=== PATIENT | male | born 1960 | race Caucasian/White ===

== ENCOUNTER → 2016-11-28 | Outpatient (CLI) | payer OTHER ==
[2016-11-28 08:03] LABS: MEAN CORPUSCULAR HEMOGLOBIN 32.1 pg (27.0-33.0); MEAN CORPUSCULAR HGB CONC 34.2 g/dl (32.0-36.5); MEAN CORPUSCULAR VOLUME 93.6 fl (80.0-96.0); RED CELL DISTRIBUTION WIDTH 12.4 % (11.5-14.5)
[2016-11-28 08:51] LABS: BASOPHILS 2 % (0-4); EOSINOPHILS 7 % (0-5)
== END ==
LOC: M LAB 06:53
PROVIDERS: ATTEND Family Medicine
DX: D72.819 Decreased white blood cell count, unspecified (principal)

== ENCOUNTER → 2017-11-16 | Outpatient (CLI) | payer OTHER ==
[2017-11-16 09:36] LABS: BASO % 0.6 % (0.0-1.0); EOS # 0.1 10^3/uL (0.0-0.50); EOS % 4.2 % (0.0-3.0); HEMOGLOBIN 14.8 g/dl (13.5-17.5); IMMATURE GRANULOCYTE % 0.3 % (0-3.0); LYMPH # 1.5 10^3/uL (1.5-4.5); LYMPH % 44.8 % (24.0-44.0); MEAN CORPUSCULAR HEMOGLOBIN 31.7 pg (27.0-33.0); MEAN CORPUSCULAR HGB CONC 34.4 g/dl (32.0-36.5); MEAN CORPUSCULAR VOLUME 92.1 fl (80.0-96.0); MONO # 0.3 10^3/uL (0.0-0.8); MONO % 9.6 % (0.0-5.0); NEUTROPHILS # 1.4 10^3/uL (1.8-7.7); NEUTROPHILS % 40.5 % (36.0-66.0); PLATELET COUNT, AUTOMATED 236 10^3/uL (150-450); RED BLOOD COUNT 4.67 10^6/uL (4.30-6.10); RED CELL DISTRIBUTION WIDTH 12.1 % (11.5-14.5); WHITE BLOOD COUNT 3.4 10^3/uL (4.0-10.0)
[2017-11-16 09:54] LABS: ESTIMATED AVERAGE GLUCOSE 120 MG/DL (60-110); HEMOGLOBIN A1c 5.8 %
[2017-11-16 10:02] LABS: ALBUMIN 3.8 GM/DL (3.2-5.2); ALBUMIN/GLOBULIN RATIO 1.31 (1.00-1.93); ALKALINE PHOSPHATASE 50 U/L (45-117); ALT/SGPT 34 U/L (12-78); ANION GAP 5 MEQ/L (8-16); AST/SGOT 28 U/L (7-37); BILIRUBIN,TOTAL 0.6 MG/DL (0.2-1.0); BLOOD UREA NITROGEN 14 MG/DL (7-18); CALCIUM LEVEL 8.6 MG/DL (8.5-10.1); CARBON DIOXIDE LEVEL 29 MEQ/L (21-32); CHLORIDE LEVEL 110 MEQ/L (98-107); CREATININE FOR GFR 1.05 MG/DL (0.70-1.30); GLOMERULAR FILTRATION RATE > 60.0 (>56); GLUCOSE, FASTING 91 MG/DL (70-100); POTASSIUM SERUM 4.3 MEQ/L (3.5-5.1); PSA SCREENING 0.53 NG/ML (< 4.0); SODIUM LEVEL 144 MEQ/L (136-145); TOTAL PROTEIN 6.7 GM/DL (6.4-8.2)
[2017-11-16 12:21] LABS: TOTAL 25(OH) VITAMIN D 41.1 NG/ML (30.0-100.0)
[2017-11-16 12:22] LABS: PTH INTACT 58.4 PG/ML (18.5-88.0)
[2017-11-20 00:06] LABS: (LD) FRACTION 1 31 % (17-32); (LD) FRACTION 2 31 % (25-40); (LD) FRACTION 3 21 % (17-27); (LD) FRACTION 4 7 % (5-13); (LD) FRACTION 5 10 % (4-20); INSULIN LEVEL 3.7 uIU/mL (2.6-24.9); LDH 179 IU/L (121-224)
== END ==
LOC: M LAB 08:07
DX: R73.01 Impaired fasting glucose (principal)
CPT/HCPCS: 83525

== ENCOUNTER → 2018-05-07 | Outpatient (CLI) | payer OTHER ==
[2018-05-07 07:38] LABS: EOS # 0.2 10^3/uL (0.0-0.50); EOS % 4.3 % (0.0-3.0); HEMATOCRIT 43.2 % (42.0-52.0); HEMOGLOBIN 14.6 g/dl (13.5-17.5); IMMATURE GRANULOCYTE % 0.5 % (0-3.0); LYMPH # 1.8 10^3/uL (1.5-4.5); LYMPH % 43.6 % (24.0-44.0); MEAN CORPUSCULAR HEMOGLOBIN 31.6 pg (27.0-33.0); MEAN CORPUSCULAR HGB CONC 33.8 g/dl (32.0-36.5); MEAN CORPUSCULAR VOLUME 93.5 fl (80.0-96.0); MONO # 0.4 10^3/uL (0.0-0.8); MONO % 9.1 % (0.0-5.0); NEUTROPHILS # 1.7 10^3/uL (1.8-7.7); NEUTROPHILS % 41.5 % (36.0-66.0); PLATELET COUNT, AUTOMATED 240 10^3/uL (150-450); RED BLOOD COUNT 4.62 10^6/uL (4.30-6.10); RED CELL DISTRIBUTION WIDTH 12.2 % (11.5-14.5); WHITE BLOOD COUNT 4.2 10^3/uL (4.0-10.0)
[2018-05-07 08:13] LABS: C REACTIVE PROTEIN QUANTITATIV < 0.30 MG/DL (0.00-0.30); CHOLESTEROL LEVEL 173 MG/DL (<200); CHOLESTEROL RISK RATIO 1.821 (<5); ESTIMATED AVERAGE GLUCOSE 117 MG/DL (60-110); FREE T4 1.24 NG/DL (0.76-1.46); HDL CHOLESTEROL 95 MG/DL (>40); HEMOGLOBIN A1c 5.7 %; LDL CHOLESTEROL 69 MG/DL (<100); NON-HDL-C 78 MG/DL; TRIGLYCERIDES LEVEL 46 MG/DL (<150)
== END ==
LOC: M LAB 07:20
DX: D72.819 Decreased white blood cell count, unspecified (principal); R73.01 Impaired fasting glucose; E03.9 Hypothyroidism, unspecified
CPT/HCPCS: 84443

== ENCOUNTER → 2018-11-28 | Outpatient (CLI) | payer OTHER ==
[2018-11-28 07:22] LABS: BASO % 1.1 % (0.0-1.0); EOS # 0.1 10^3/uL (0.0-0.50); EOS % 3.7 % (0.0-3.0); HEMATOCRIT 46.3 % (42.0-52.0); HEMOGLOBIN 15.4 g/dl (13.5-17.5); LYMPH # 1.8 10^3/uL (1.5-4.5); LYMPH % 50.6 % (24.0-44.0); MEAN CORPUSCULAR HEMOGLOBIN 31.6 pg (27.0-33.0); MEAN CORPUSCULAR HGB CONC 33.3 g/dl (32.0-36.5); MEAN CORPUSCULAR VOLUME 94.9 fl (80.0-96.0); MONO # 0.3 10^3/uL (0.0-0.8); MONO % 9.1 % (0.0-5.0); NEUTROPHILS # 1.2 10^3/uL (1.8-7.7); NEUTROPHILS % 35.2 % (36.0-66.0); PLATELET COUNT, AUTOMATED 217 10^3/uL (150-450); RED BLOOD COUNT 4.88 10^6/uL (4.30-6.10); WHITE BLOOD COUNT 3.5 10^3/uL (4.0-10.0)
[2018-11-28 07:54] LABS: ALBUMIN 3.8 GM/DL (3.2-5.2); ALT/SGPT 31 U/L (12-78); BILIRUBIN,TOTAL 0.7 MG/DL (0.2-1.0); BLOOD UREA NITROGEN 17 MG/DL (7-18); CALCIUM LEVEL 9.2 MG/DL (8.5-10.1); CARBON DIOXIDE LEVEL 29 MEQ/L (21-32); CHLORIDE LEVEL 106 MEQ/L (98-107); CREATININE FOR GFR 1.07 MG/DL (0.70-1.30); GLOMERULAR FILTRATION RATE > 60.0 (>56); GLUCOSE, FASTING 94 MG/DL (70-100); POTASSIUM SERUM 4.3 MEQ/L (3.5-5.1); SODIUM LEVEL 141 MEQ/L (136-145); TOTAL PROTEIN 6.9 GM/DL (6.4-8.2)
[2018-11-28 07:55] LABS: HEMOGLOBIN A1c 5.8 %
[2018-11-28 09:33] LABS: PTH INTACT 55.7 PG/ML (18.5-88.0)
== END ==
LOC: M LAB 06:51
PROVIDERS: ATTEND Family Medicine
DX: D72.819 Decreased white blood cell count, unspecified (principal); E55.9 Vitamin D deficiency, unspecified; R73.01 Impaired fasting glucose

== ENCOUNTER → 2019-06-13 | Outpatient (CLI) | payer OTHER ==
[2019-06-13 07:14] LABS: APPEARANCE, URINE CLEAR (CLEAR); BACTERIA, URINE AUTO NEGATIVE (NEGATIVE); BILIRUBIN, URINE AUTO NEGATIVE (NEGATIVE); BLOOD, URINE BLOOD NEGATIVE (NEGATIVE); COLOR, URINE YELLOW (YELLOW); GLUCOSE, URINE (UA) AUTO NEGATIVE (NEGATIVE); KETONE, URINE AUTO NEGATIVE (NEGATIVE); LEUKOCYTE ESTERASE, URINE AUTO NEGATIVE (NEGATIVE); NITRITE, URINE AUTO NEGATIVE (NEGATIVE); PROTEIN, URINE AUTO NEGATIVE (NEGATIVE); RBC, URINE AUTO 2 /HPF (0-3); SPECIFIC GRAVITY URINE AUTO 1.015 (1.002-1.035); SQUAMOUS EPITHELIAL CELL UR AU 0 /HPF (0-6); UROBILINOGEN, URINE AUTO 0.2 mg/dL (0.0-2.0); WBC, URINE AUTO 1 /HPF (0-3)
[2019-06-13 07:29] LABS: BASO % 0.8 % (0.0-1.0); EOS # 0.2 10^3/uL (0.0-0.5); EOS % 4.2 % (0.0-3.0); HEMATOCRIT 42.5 % (42.0-52.0); HEMOGLOBIN 14.2 g/dl (13.5-17.5); LYMPH # 1.8 10^3/uL (1.5-5.0); LYMPH % 50.7 % (24.0-44.0); MEAN CORPUSCULAR HEMOGLOBIN 32.3 pg (27.0-33.0); MEAN CORPUSCULAR HGB CONC 33.4 g/dl (32.0-36.5); MEAN CORPUSCULAR VOLUME 96.6 fl (80.0-96.0); MONO # 0.4 10^3/uL (0.0-0.8); MONO % 10.3 % (0.0-5.0); NEUTROPHILS # 1.2 10^3/uL (1.5-8.5); NEUTROPHILS % 33.7 % (36.0-66.0); PLATELET COUNT, AUTOMATED 236 10^3/uL (150-450); WHITE BLOOD COUNT 3.6 10^3/uL (4.0-10.0)
[2019-06-13 07:56] LABS: FREE T4 1.32 NG/DL (0.76-1.46)
[2019-06-13 07:59] LABS: MALB URINE SIEMENS 18.8 MG/L; MAU/CREAT RATIO 12.3 MCG/MG (0.0-30.0)
[2019-06-13 09:43] LABS: HEMOGLOBIN A1c 5.8 %
[2019-06-17 00:06] LABS: INSULIN LEVEL 4.9 uIU/mL (2.6-24.9)
== END ==
LOC: M LAB 06:47
PROVIDERS: ATTEND Family Medicine
DX: R73.01 Impaired fasting glucose (principal); E03.9 Hypothyroidism, unspecified; D72.819 Decreased white blood cell count, unspecified; Z12.5 Encounter for screening for malignant neoplasm of prostate

== ENCOUNTER → 2019-12-19 | Outpatient (REF) | payer BC ==
[2019-12-19 11:29] LABS: EOS # 0.2 10^3/uL (0.0-0.5); EOS % 4.6 % (0.0-3.0); HEMATOCRIT 44.6 % (42.0-52.0); HEMOGLOBIN 14.8 g/dl (13.5-17.5); LYMPH # 2.1 10^3/uL (1.5-5.0); LYMPH % 51.7 % (24.0-44.0); MEAN CORPUSCULAR HEMOGLOBIN 31.5 pg (27.0-33.0); MEAN CORPUSCULAR HGB CONC 33.2 g/dl (32.0-36.5); MEAN CORPUSCULAR VOLUME 94.9 fl (80.0-96.0); MONO # 0.4 10^3/uL (0.0-0.8); MONO % 10.2 % (0.0-5.0); NEUTROPHILS # 1.3 10^3/uL (1.5-8.5); NEUTROPHILS % 32.3 % (36.0-66.0); PLATELET COUNT, AUTOMATED 240 10^3/uL (150-450); WHITE BLOOD COUNT 4.1 10^3/uL (4.0-10.0)
[2019-12-19 11:48] LABS: ALBUMIN 3.6 GM/DL (3.2-5.2); ALT/SGPT 41 U/L (12-78); BILIRUBIN,TOTAL 0.5 MG/DL (0.2-1.0); BLOOD UREA NITROGEN 15 MG/DL (7-18); CALCIUM LEVEL 8.9 MG/DL (8.5-10.1); CARBON DIOXIDE LEVEL 28 MEQ/L (21-32); CHLORIDE LEVEL 107 MEQ/L (98-107); CHOLESTEROL LEVEL 197 MG/DL (<200); CREATININE FOR GFR 1.06 MG/DL (0.70-1.30); GLOMERULAR FILTRATION RATE > 60.0 (>56); GLUCOSE, FASTING 98 MG/DL (70-100); HDL CHOLESTEROL 100 MG/DL (>40); IMMUNOGLOBULIN G 838 MG/DL (681-1648); LDL CHOLESTEROL 88 MG/DL (<100); NON-HDL-C 97 MG/DL; POTASSIUM SERUM 4.5 MEQ/L (3.5-5.1); SODIUM LEVEL 142 MEQ/L (136-145); TOTAL PROTEIN 7.1 GM/DL (6.4-8.2); TRIGLYCERIDES LEVEL 45 MG/DL (<150)
[2019-12-19 11:55] LABS: HEMOGLOBIN A1c 5.9 %
[2019-12-23 05:07] LABS: FREE KAPPA LIGHT CHAINS SERUM 13.7 mg/L (3.3-19.4); FREE KAPPA LIGHT CHAINS URINE 3.06 mg/L (0.63-113.79); FREE LAMBDA LIGHT CHAINS SERUM 8.9 mg/L (5.7-26.3); FREE LAMBDA LIGHT CHAINS URINE <0.65 mg/L (0.47-11.77); KAPPA/LAMBDA RATIO SERUM 1.54 (0.26-1.65); KAPPA/LAMBDA RATIO URINE >4.71 (1.03-31.76)
== END ==
LOC: M PLALAB 08:04
PROVIDERS: ATTEND Family Medicine
DX: D72.819 Decreased white blood cell count, unspecified (principal); D47.2 Monoclonal gammopathy; R73.01 Impaired fasting glucose; Z12.5 Encounter for screening for malignant neoplasm of prostate
CPT/HCPCS: 36415; 80053; 80061; 82784; 83036; 83883; 84165; 85025; G0103

== ENCOUNTER → 2020-12-08 | Outpatient (CLI) | payer BC ==
[2020-12-08 09:00] LABS: BASO % 0.7 % (0.0-1.0); EOS # 0.2 10^3/uL (0.0-0.5); EOS % 4.8 % (0.0-3.0); HEMATOCRIT 45.3 % (42.0-52.0); LYMPH # 1.9 10^3/uL (1.5-5.0); LYMPH % 44.8 % (24.0-44.0); MEAN CORPUSCULAR HEMOGLOBIN 31.6 pg (27.0-33.0); MEAN CORPUSCULAR HGB CONC 33.1 g/dl (32.0-36.5); MEAN CORPUSCULAR VOLUME 95.6 fl (80.0-96.0); MONO # 0.4 10^3/uL (0.0-0.8); MONO % 9.7 % (2.0-8.0); NEUTROPHILS # 1.6 10^3/uL (1.5-8.5); NEUTROPHILS % 39.8 % (36.0-66.0); PLATELET COUNT, AUTOMATED 242 10^3/uL (150-450); RED BLOOD COUNT 4.74 10^6/uL (4.30-6.10); WHITE BLOOD COUNT 4.1 10^3/uL (4.0-10.0)
[2020-12-08 09:05] LABS: CREATININE,RANDOM URINE 57.6 MG/DL; TOTAL PROTEIN,RANDOM URINE 7.4 MG/DL (0.0-12.0)
[2020-12-08 09:17] LABS: ALBUMIN 3.6 GM/DL (3.2-5.2); ALT/SGPT 30 U/L (12-78); BILIRUBIN,TOTAL 0.6 MG/DL (0.2-1.0); BLOOD UREA NITROGEN 14 MG/DL (7-18); CARBON DIOXIDE LEVEL 30 MEQ/L (21-32); CHLORIDE LEVEL 109 MEQ/L (98-107); CREATININE FOR GFR 0.97 MG/DL (0.70-1.30); FREE T4 1.32 NG/DL (0.76-1.46); GLOMERULAR FILTRATION RATE > 60.0 (>49); GLUCOSE, FASTING 98 MG/DL (70-100); IMMUNOGLOBULIN G 841 MG/DL (681-1648); POTASSIUM SERUM 4.5 MEQ/L (3.5-5.1); SODIUM LEVEL 141 MEQ/L (136-145); TOTAL PROTEIN 6.8 GM/DL (6.4-8.2)
[2020-12-08 10:18] LABS: HEMOGLOBIN A1c 5.8 %
[2020-12-09 10:45] LABS: ALBUMIN % 61.3 % (55.8-66.1); ALPHA-1-GLOBULIN % 3.2 % (2.9-4.9); ALPHA-2-GLOBULINS % 9.8 % (7.1-11.8); BETA-1-GLOBULINS % 5.7 % (4.7-7.2); BETA-2-GLOBULINS % 4.5 % (3.2-6.5); GAMMA GLOBULIN % 15.5 % (11.1-18.8)
[2020-12-09 10:46] LABS: ALBUMIN 4.17 GM/DL (3.29-5.55); ALPHA-1-GLOBULINS 0.22 GM/DL (0.17-0.41); ALPHA-2-GLOBULINS 0.67 GM/DL (0.42-0.99); BETA-1-GLOBULINS 0.39 GM/DL (0.28-0.60); BETA-2-GLOBULINS 0.31 GM/DL (0.19-0.55); GAMMA GLOBULINS 1.05 GM/DL (0.65-1.58)
== END ==
LOC: M LAB 07:39
PROVIDERS: ATTEND Family Medicine
DX: R73.01 Impaired fasting glucose (principal); D72.819 Decreased white blood cell count, unspecified; E03.9 Hypothyroidism, unspecified; D47.2 Monoclonal gammopathy

== ENCOUNTER → 2021-08-19 | Outpatient (CLI) | payer BC ==
[~2021-08-19] MED LIST: LEVO75TA4 PO
== END ==
LOC: M LABSMTC 09:59
PROVIDERS: ATTEND Anesthesiology
DX: Z01.812 Encounter for preprocedural laboratory examination (principal); Z20.822 Contact with and (suspected) exposure to COVID-19

== ENCOUNTER → 2022-01-09 | Outpatient (CLI) | payer OTHER ==
[2022-01-09 07:28] LABS: BASO % 0.8 % (0.0-1.0); EOS # 0.3 10^3/uL (0.0-0.5); EOS % 5.7 % (0.0-3.0); HEMATOCRIT 43.4 % (42.0-52.0); HEMOGLOBIN 14.5 g/dl (13.5-17.5); LYMPH # 2.5 10^3/uL (1.5-5.0); LYMPH % 50.8 % (24.0-44.0); MEAN CORPUSCULAR HEMOGLOBIN 32.1 pg (27.0-33.0); MEAN CORPUSCULAR HGB CONC 33.4 g/dl (32.0-36.5); MONO # 0.5 10^3/uL (0.0-0.8); MONO % 10.5 % (2.0-8.0); NEUTROPHILS # 1.6 10^3/uL (1.5-8.5); PLATELET COUNT, AUTOMATED 241 10^3/uL (150-450); RED BLOOD COUNT 4.52 10^6/uL (4.30-6.10); WHITE BLOOD COUNT 4.9 10^3/uL (4.0-10.0)
[2022-01-09 07:46] LABS: HEMOGLOBIN A1c 5.5 %
[2022-01-09 08:36] LABS: ALBUMIN 3.7 GM/DL (3.2-5.2); BLOOD UREA NITROGEN 15 MG/DL (7-18); CALCIUM LEVEL 9.5 MG/DL (8.8-10.2); CARBON DIOXIDE LEVEL 28 MEQ/L (21-32); CHLORIDE LEVEL 107 MEQ/L (98-107); GLOMERULAR FILTRATION RATE > 60.0 (>49); GLUCOSE, FASTING 98 MG/DL (70-100); PHOSPHORUS LEVEL 3.1 MG/DL (2.5-4.9); POTASSIUM SERUM 4.1 MEQ/L (3.5-5.1); SODIUM LEVEL 143 MEQ/L (136-145)
[2022-01-09 09:13] LABS: PTH INTACT 41.5 PG/ML (18.5-88.0)
== END ==
LOC: M LAB 06:59
PROVIDERS: ATTEND Family Medicine
DX: E55.9 Vitamin D deficiency, unspecified (principal)

== ENCOUNTER → 2022-05-10 | Outpatient (CLI) | payer OTHER ==
[~2022-05-10] MED LIST changes: +THERTAB52 PO
== END ==
LOC: M LABSMTC 10:04
PROVIDERS: ATTEND Anesthesiology
DX: Z01.818 Encounter for other preprocedural examination (principal); Z11.52 Encounter for screening for COVID-19

== ENCOUNTER 2022-05-15 07:22 | Day surgery (SDC) | payer OTHER ==
[~2022-05-15] VITALS: Ht 170.2 cm; Wt 64.8 kg
[~2022-05-15 07:22] MED LIST changes: +NS 1,000 ML IV ONE
[2022-05-15] MEDS ORDERED: propofoL 200 MG/20 ML VIAL As Ordered ONE (08:16)
[2022-05-15] MEDS ORDERED: LIDOCAINE 2% INJ 100 MG/5 ML SYRINGE As Ordered ONE (08:16)
[2022-05-15 08:35] VITALS: BP 150/80
== END 2022-05-15 08:49 | disposition home or self-care (01) ==
LOC: M OPP 07:22
PROVIDERS: ATTEND Internal Medicine Gastroenterology
DX: Z12.11 Encounter for screening for malignant neoplasm of colon (principal); D12.8 Benign neoplasm of rectum; K64.8 Other hemorrhoids; Z79.899 Other long term (current) drug therapy; E03.9 Hypothyroidism, unspecified; D72.819 Decreased white blood cell count, unspecified

== ENCOUNTER → 2024-08-23 | Outpatient (CLI) | payer OTHER ==
[~2024-08-23] MED LIST changes: -NS 1,000 ML IV ONE
[2024-08-23 09:14] LABS: CHOLESTEROL RISK RATIO 2.27 (<5); HDL CHOLESTEROL 83.8 MG/DL (>40); LDL CHOLESTEROL 98.8 MG/DL (<100); NON-HDL-C 107.2 MG/DL
[2024-08-23 09:34] LABS: PSA SCREENING 0.49 NG/ML (< 4.00)
[2024-08-23 09:54] LABS: HEMOGLOBIN A1c 5.5 % (4.0-6.0)
== END ==
LOC: M LAB 08:23
PROVIDERS: ATTEND Family Medicine
DX: Z00.00 Encounter for general adult medical examination without abnormal findings (principal)

== ENCOUNTER → 2025-03-28 | Outpatient (CLI) | payer MEDICARE ==
[2025-03-28 09:33] LABS: BASO # 0.0 10^3/uL (0.0-0.2); BASO % 0.6 % (0.0-1.0); EOS # 0.2 10^3/uL (0.0-0.5); EOS % 3.5 % (0.0-3.0); LYMPH # 3.7 10^3/uL (1.5-5.0); LYMPH % 57.3 % (24.0-44.0); MONO # 0.5 10^3/uL (0.0-0.8); MONO % 7.1 % (2.0-8.0); NEUTROPHILS # 2.0 10^3/uL (1.5-8.5); NEUTROPHILS % 31.3 % (36.0-66.0); PLATELET COUNT, AUTOMATED 231 10^3/uL (150-450)
[2025-03-28 10:24] LABS: ALT/SGPT 25.0 U/L (7.0-40); AST/SGOT 27.0 U/L (<34); CALCIUM LEVEL 9.6 MG/DL (8.3-10.6); CARBON DIOXIDE LEVEL 29.0 MMOL/L (20-31); CHLORIDE LEVEL 105.0 MMOL/L (98-107); CREATININE FOR GFR 1.03 MG/DL (0.70-1.30); GLOMERULAR FILTRATION RATE 80.6 (>49); POTASSIUM SERUM 4.5 MMOL/L (3.5-5.1); SODIUM LEVEL 143.0 MMOL/L (136-145)
[2025-03-28 10:30] LABS: PTH INTACT 37.1 PG/ML (18.5-88.0)
[2025-03-28 10:31] LABS: FREE T4 1.29 NG/DL (0.89-1.76)
[2025-03-28 10:33] LABS: TOTAL 25(OH) VITAMIN D 33.4 NG/ML (20.0-100.0)
[2025-03-30 17:59] LABS: PROTEIN, TOTAL SO 6.8 g/dL (6.1-8.1)
[2025-03-31 10:51] LABS: FREE KAPPA LIGHT CHAINS SERUM 17.0 mg/L (3.3-19.4); FREE LAMBDA LIGHT CHAINS SERUM 11.4 mg/L (5.7-26.3); KAPPA/LAMBDA RATIO SERUM 1.49 (0.26-1.65)
[2025-04-01 09:12] LABS: ALBUMIN SO 4.3 g/dL (3.8-4.8); ALPHA 1 GLOBULINS SO 0.2 g/dL (0.2-0.3); ALPHA 2 GLOBULINS SO 0.6 g/dL (0.5-0.9); BETA 2 GLOBULIN SO 0.3 g/dL (0.2-0.5); BETA GLOBULIN SO 0.4 g/dL (0.4-0.6); GAMMA GLOBULINS SO 0.9 g/dL (0.8-1.7); SPEP IFE ABN PROTEIN BAND 1 0.4 g/dL (NONE DETECTED)
== END ==
LOC: M LAB 08:20
PROVIDERS: ATTEND Family Medicine
DX: D47.2 Monoclonal gammopathy (principal); E55.9 Vitamin D deficiency, unspecified; E03.9 Hypothyroidism, unspecified

== ENCOUNTER → 2025-04-28 | Outpatient (REF) | payer MEDICARE | LOC: M LAB REF 12:50 | PROVIDERS: ATTEND Family Medicine | DX: D47.2 Monoclonal gammopathy (principal) ==